=== PATIENT | female | born 1970 | race Caucasian/White ===

== ENCOUNTER 2017-12-20 15:29 | Observation (INO) ==
--- NOTE | 2017-12-20 15:54 | ED ---
HPI General Chief complaint: Chest Pain Stated complaint: Weakness/Chest Pain/Hypertension xLast Night History of Present Illness HPI narrative: 47-year-old female here for evaluation of chest pain and flu/ cold like symptoms. The patient reports that 2 weeks ago she had a couple episodes of right upper chest pain that she describes as sharp, lasting several seconds, nonradiating, improved when she rubbed her chest, no worsening factors , no associated diaphoresis or dyspnea. Patient reports that she had a couple more of these episodes last night, and again this morning. She also states that for the last 6 weeks or so she has been having nasal congestion, pressure in bilateral ears, and sore throat. She is unsure if she has had a fever stating that she is going through menopause and occasionally has hot flashes. She reports family history of heart disease in her mother who also had a stroke in the past. Patient reports that she quit smoking cigarettes about 6 weeks ago after smoking for about a year. She quit smoking for 4 years before that, however reports smoking throughout her entire life. Currently she is chest pain -free. No history of DVT or PE. No paresthesias or motor deficits. No dyspnea. Related Data Home Medications Medication Instructions Recorded Confirmed No Known Home Medications 12/20/17 12/20/17 Allergies Allergy/AdvReac Type Severity Reaction Status Date / Time No Known Allergies Allergy Verified 12/20/17 15:39 Review of Systems ROS: all other systems reviewed are negative PMFSH Medical History Medical History Patient denies medical problems (Acute) Surgical History Surgical History H/O tubal ligation (Acute) Social History Social History Substance History: No History of Abuse Smoking Status: Former smoker Tobacco Type: Cigarettes How Often Do You Have a Drink Containing Alcohol: Never Recent Travel in [facility] within the Last 8 Weeks: No Recent Out of Country Travel within the Last 8 Weeks: No Immunization History Tetanus Immunization: Unsure Hx Influenza Vaccine This Season: No Exam Narrative Exam Narrative: GENERAL: Well-developed, well-nourished, awake, alert, comfortable, no apparent distress. SKIN: Focused skin assessment warm/dry. HEAD: Atraumatic. Normocephalic. EYES: Pupils equal and round. No scleral icterus. No injection or drainage. ENT: Mucous membranes pink and moist. Pharynx with mild erythema without exudates. Otherwise normal. No drooling or stridor. Bilateral tympanic membranes and external auditory canals are normal. NECK: Trachea midline. No JVD. CARDIOVASCULAR: Regular rate and rhythm. Distal pulses brisk and equal bilaterally. RESPIRATORY: No accessory muscle use. Clear to auscultation. Breath sounds equal bilaterally. GASTROINTESTINAL: Abdomen soft, non-tender, nondistended. MUSCULOSKELETAL: No obvious deformities. No clubbing. No cyanosis. No edema. NEUROLOGICAL: Awake and alert. No obvious cranial nerve deficits. Motor grossly within normal limits. Normal speech. PSYCHIATRIC: Appropriate mood and affect; insight and judgment normal. Course Initial Documented Vital Signs Temperature 98.5 F 12/20/17 15:39 Pulse Rate 87 12/20/17 15:39 Respiratory Rate 18 12/20/17 15:39 Blood Pressure 137/83 12/20/17 15:39 Pulse Oximetry 98 12/20/17 15:39 Last Documented Vital Signs Temperature 98.5 F 12/20/17 15:39 Pulse Rate 84 12/20/17 16:58 Respiratory Rate 18 12/20/17 16:58 Blood Pressure 106/67 12/20/17 16:58 Pulse Oximetry 97 12/20/17 16:58 Medical Decision Making [facility] Narrative Medical decision making narrative: 3:58 PM: The patient had an episode of 8 beats of nonsustained ventricular tachycardia on the monitor. She reported feeling a fluttering sensation in her chest at that time. Labs, vitals, and imaging studies were reviewed and were reviewed with the patient. Labs are remarkable for potassium 3.4 which was replaced orally, otherwise unremarkable. Cardiac enzymes are negative. D-dimer is negative. Chest x-ray shows no acute cardia pulmonary disease. EKG shows normal sinus rhythm with normal intervals, no acute ischemic abnormalities. Patient was made aware of all findings. She is resting comfortably. Because of this episode of 8 beats of nonsustained ventricular tachycardia, chest pain, risk factors of cardiac disease which include history of smoking and family history of cardiac disease in her mother, she will be admitted to the chest pain center for further cardiac evaluation. She was given a full aspirin in the emergency department and started on Augmentin for sinusitis type symptoms. Case discussed with hospitalist Dr. Torrey Bravo who will admit the patient to his service. Medical Screen Exam Complete: Yes Emergency Medical Condition: Yes Lab Data Result diagrams: 12/20/17 15:50 12/20/17 15:50 Lab Results 12/20/17 12/20/17 12/20/17 Range/Units 15:50 15:50 15:50 CBC w Diff Auto diff final WBC 7.4 (4.0-11.0) th/mm3 RBC 4.92 (4.00-5.30) mil/mm3 Hgb 15.2 (11.6-15.3) gm/dL Hct 44.2 (35.0-46.0) % MCV 89.8 (80.0-100.0) fL MCH 30.8 (27.0-34.0) pg MCHC 34.3 (32.0-36.0) % RDW 12.3 (11.6-17.2) % Plt Count 231 (150-450) th/mm3 MPV 8.2 (7.0-11.0) fL Neut % (Auto) 77.2 H (16.0-70.0) % Lymph % (Auto) 18.3 (9.0-44.0) % [place] % (Auto) 3.0 (0.0-8.0) % Eos % (Auto) 1.1 (0.0-4.0) % Baso % (Auto) 0.4 (0.0-2.0) % Neut # (Auto) 5.7 (1.8-7.7) th/mm3 Lymph # (Auto) 1.4 (1.0-4.8) th/mm3 [place] # (Auto) 0.2 (0.0-0.9) th/mm3 Eos # (Auto) 0.1 (0.0-0.4) th/mm3 Baso # (Auto) 0.0 (0.0-0.2) th/mm3 WBC Differential . Differential Comment . D-Dimer Quant (PE/DVT) (0.00-0.50) mg/L FEU Sodium 141 (136-145) meq/L Potassium 3.4 L (3.5-5.1) meq/L Chloride 106 (98-107) meq/L Carbon Dioxide 23.0 (21.0-32.0) meq/L Anion Gap 12 (5-15) meq/L BUN 11 (7-18) mg/dL Creatinine 0.93 (0.50-1.00) mg/dL Estimated GFR 64 L (>89) mL/min Random Glucose 140 H (74-106) mg/dL Calcium 8.9 (8.5-10.1) mg/dL Total Bilirubin 0.4 (0.2-1.0) mg/dL AST 10 L (15-37) U/L ALT 15 (10-53) U/L Alkaline Phosphatase 72 (45-117) U/L Total Creatine Kinase 80 (26-192) U/L Troponin I Less than 0.02 L (0.02-0.05) ng/mL Total Protein 7.6 (6.4-8.2) g/dL Albumin 3.6 (3.4-5.0) g/dL Beta HCG, Quant 1 (0-5) mIU/mL 12/20/17 Range/Units 16:15 CBC w Diff WBC (4.0-11.0) th/mm3 RBC (4.00-5.30) mil/mm3 Hgb (11.6-15.3) gm/dL Hct (35.0-46.0) % MCV (80.0-100.0) fL MCH (27.0-34.0) pg MCHC (32.0-36.0) % RDW (11.6-17.2) % Plt Count (150-450) th/mm3 MPV (7.0-11.0) fL Neut % (Auto) (16.0-70.0) % Lymph % (Auto) (9.0-44.0) % [place] % (Auto) (0.0-8.0) % Eos % (Auto) (0.0-4.0) % Baso % (Auto) (0.0-2.0) % Neut # (Auto) (1.8-7.7) th/mm3 Lymph # (Auto) (1.0-4.8) th/mm3 [place] # (Auto) (0.0-0.9) th/mm3 Eos # (Auto) (0.0-0.4) th/mm3 Baso # (Auto) (0.0-0.2) th/mm3 WBC Differential Differential Comment D-Dimer Quant (PE/DVT) 0.21 (0.00-0.50) mg/L FEU Sodium (136-145) meq/L Potassium (3.5-5.1) meq/L Chloride (98-107) meq/L Carbon Dioxide (21.0-32.0) meq/L Anion Gap (5-15) meq/L BUN (7-18) mg/dL Creatinine (0.50-1.00) mg/dL Estimated GFR (>89) mL/min Random Glucose (74-106) mg/dL Calcium (8.5-10.1) mg/dL Total Bilirubin (0.2-1.0) mg/dL AST (15-37) U/L ALT (10-53) U/L Alkaline Phosphatase (45-117) U/L Total Creatine Kinase (26-192) U/L Troponin I (0.02-0.05) ng/mL Total Protein (6.4-8.2) g/dL Albumin (3.4-5.0) g/dL Beta HCG, Quant (0-5) mIU/mL Imaging Data Radiologist's impression: Chest X-Ray 12/20/17 15:46 CONCLUSION: No acute cardiopulmonary abnormality is identified. ECG Data Attestation: I personally reviewed and interpreted this ECG as follows: (Sinus, rate 69, normal axis, normal intervals, no acute ischemic abnormality.) Discharge Plan Discharge Disposition Patient Disposition: 30 Still Patient Discharge Condition Condition: Stable Discharge Details Diagnosis: Chest pain, Non-sustained ventricular tachycardia, Sinusitis Physicians Team ED Provider: Nicolas Castle Primary Care Provider: Primary Care Angi Pruett Rxs /Orders / Referrals /Forms Prescriptions: No Action No Known Home Medications RF: 0 Discharge Instructions Patient Printed Instructions: Chest Pain (ED) Status ED Status: With Nurse
[2017-12-20 15:59] LABS: Baso % (Auto) 0.4 % (0.0-2.0); Eos # (Auto) 0.1 th/mm3 (0.0-0.4); Eos % (Auto) 1.1 % (0.0-4.0); Hematocrit 44.2 % (35.0-46.0); Hemoglobin 15.2 gm/dL (11.6-15.3); Lymph # (Auto) 1.4 th/mm3 (1.0-4.8); Lymph % (Auto) 18.3 % (9.0-44.0); Mean Corpuscular HGB Conc 34.3 % (32.0-36.0); Mean Corpuscular Hemoglobin 30.8 pg (27.0-34.0); Mean Corpuscular Volume 89.8 fL (80.0-100.0); Mean Platelet Volume 8.2 fL (7.0-11.0); Mono # (Auto) 0.2 th/mm3 (0.0-0.9); Neut # (Auto) 5.7 th/mm3 (1.8-7.7); Neut % (Auto) 77.2 % (16.0-70.0); Platelet Count 231 th/mm3 (150-450); Red Blood Count 4.92 mil/mm3 (4.00-5.30); Red Cell Distribution Width 12.3 % (11.6-17.2); White Blood Count 7.4 th/mm3 (4.0-11.0)
--- NOTE | 2017-12-20 16:10 | XR ---
EXAM DATE: 12/20/2017 3:46 PM EDT AGE/SEX: 47 years / Female INDICATIONS: Right sided chest pain for 24 hours CLINICAL DATA: This is the patient's initial encounter. Patient reports that signs and symptoms have been present for 1 day and indicates a pain score of 3/10. MEDICAL/SURGICAL HISTORY: None. None. COMPARISON: No prior exams available for comparison. FINDINGS: Portable AP view of the chest demonstrates a normal-sized cardiac silhouette. No effusion, consolidat ion, or pneumothorax is identified. The bones and soft tissues demonstrate no acute finding. EKG line s overlie the patient. CONCLUSION: No acute cardiopulmonary abnormality is identified. Electronically signed by: Andrae oHdges MD 12/20/2017 4:09 PM EDT
[2017-12-20 16:11] LABS: Chloride 106 meq/L (98-107); Potassium 3.4 meq/L (3.5-5.1); Sodium 141 meq/L (136-145)
[2017-12-20 16:13] LABS: Calcium 8.9 mg/dL (8.5-10.1)
[2017-12-20 16:14] LABS: Albumin 3.6 g/dL (3.4-5.0); Anion Gap 12 meq/L (5-15); Blood Urea Nitrogen 11 mg/dL (7-18); Glucose,Random 140 mg/dL (74-106)
[2017-12-20 16:17] LABS: Alanine Aminotransferase 15 U/L (10-53); Aspartate Aminotransferase 10 U/L (15-37); Glomerular Filtration Rate 64 mL/min (>89)
[2017-12-20 16:19] LABS: Total Protein 7.6 g/dL (6.4-8.2)
[2017-12-20 16:20] LABS: Alkaline Phosphatase 72 U/L (45-117); Creatine Kinase 80 U/L (26-192)
[2017-12-20] MEDS ORDERED: Amoxicillin/Clavulanate 875/125 MG Tablet PO ONE (17:07)
[2017-12-20] MEDS ORDERED: Morphine Inj 4 MG/ML Vial IV.PUSH PRN (18:19)
[2017-12-20] MEDS ORDERED: Enoxaparin Inj 40 MG/0.4 ML Syringe SQ SCH (20:00)
[2017-12-20] MEDS: Sod Chloride 0.9% Inj 1,000 ML IV.CONT SCH (21:29)
--- NOTE | 2017-12-20 21:31 | ECG ---
Date Performed: 12/20/2017 Time Performed: 15:38:49 PTAGE: 47 years EKG: Sinus rhythm NORMAL ECG NO PREVIOUS TRACING DOCTOR: Aleks West Interpretating Date/Time 12/20/2017 21:29:45
[2017-12-20 22:38] LABS: Chloride 107 meq/L (98-107); Potassium 3.7 meq/L (3.5-5.1); Sodium 140 meq/L (136-145)
[2017-12-20 22:41] LABS: Calcium 8.5 mg/dL (8.5-10.1)
[2017-12-20 22:42] LABS: Albumin 3.2 g/dL (3.4-5.0); Anion Gap 8 meq/L (5-15); Blood Urea Nitrogen 15 mg/dL (7-18); Carbon Dioxide 24.7 meq/L (21.0-32.0); Glucose,Random 113 mg/dL (74-106)
[2017-12-20 22:45] LABS: Alanine Aminotransferase 17 U/L (10-53); Aspartate Aminotransferase 12 U/L (15-37); Glomerular Filtration Rate Greater Than 89 mL/min (>89)
[2017-12-20 22:46] LABS: Total Protein 6.8 g/dL (6.4-8.2)
[2017-12-20 22:48] LABS: Alkaline Phosphatase 66 U/L (45-117)
[2017-12-20 22:58] LABS: Creatine Kinase 66 U/L (26-192)
--- NOTE | 2017-12-21 06:34 | ECG ---
Date Performed: 12/20/2017 Time Performed: 22:09:58 PTAGE: 47 years EKG: Sinus rhythm NORMAL ECG No significant change from prior electrocardiogram. PREVIOUS TRACING : 12/20/2017 15.38 DOCTOR: Aleks West Interpretating Date/Time 12/21/2017 06:33:07
[2017-12-21 07:10] LABS: Creatine Kinase 69 U/L (26-192)
[2017-12-21 07:56] LABS: Baso % (Auto) 0.6 % (0.0-2.0); Eos # (Auto) 0.2 th/mm3 (0.0-0.4); Eos % (Auto) 2.8 % (0.0-4.0); Hematocrit 43.1 % (35.0-46.0); Hemoglobin 14.6 gm/dL (11.6-15.3); Lymph # (Auto) 1.5 th/mm3 (1.0-4.8); Lymph % (Auto) 23.5 % (9.0-44.0); Mean Corpuscular HGB Conc 33.9 % (32.0-36.0); Mean Corpuscular Hemoglobin 30.2 pg (27.0-34.0); Mean Platelet Volume 8.1 fL (7.0-11.0); Mono # (Auto) 0.3 th/mm3 (0.0-0.9); Mono % (Auto) 5.5 % (0.0-8.0); Neut # (Auto) 4.2 th/mm3 (1.8-7.7); Neut % (Auto) 67.6 % (16.0-70.0); Platelet Count 218 th/mm3 (150-450); Red Blood Count 4.84 mil/mm3 (4.00-5.30); Red Cell Distribution Width 12.3 % (11.6-17.2); White Blood Count 6.2 th/mm3 (4.0-11.0)
[2017-12-21] MEDS ORDERED: Aspirin 325 MG Tablet PO SCH (09:00)
--- NOTE | 2017-12-21 09:33 | ECG ---
Date Performed: 12/21/2017 Time Performed: 00:50:56 PTAGE: 47 years EKG: Sinus rhythm WITH SINUS ARRHYTHMIA NORMAL ECG No significant change from prior electrocardiogram. PREVIOUS TRACING : 12/20/2017 22.09 DOCTOR: Aleks West Interpretating Date/Time 12/21/2017 09:31:07
--- NOTE | 2017-12-21 09:48 | P.HP ---
History of Present Illness Primary Care Physician: No Primary Care Physician Chief Complaint: Chest pain History of Present Illness: 47-year-old female with no chronic medical illnesses who presented to the hospital for evaluation of chest discomfort. Patient states that she started developing chest discomfort located in her right anterior chest associated with some lightheadedness and dizziness approximately 1 week ago. She had one episode at that time felt like she is going to pass out. However she was doing well until last night when she started developing the discomfort again. This time she is having some pain in her right anterior chest that did not radiate to her neck, back, shoulder, arm. She did have some lightheadedness dizziness. He denied any nausea, vomiting, diaphoresis, shortness of breath, dyspnea. Patient came to the emergency department for evaluation. ER documentation indicates that while the patient was in the ER while on telemetry there was an episode of a nonsustained ventricular tachycardia of 8 beats. Because of that reason it was recommended by the ER physician that the patient be observed in the hospital for further evaluation and management. Patient denies any previous cardiac workup. Risk factors would include age, history of tobacco use, family history of heart disease. - Diagnosis (1) Chest pain (2) Non-sustained ventricular tachycardia Review of Systems Cardiovascular: Reports chest pain, Reports rapid, pounding, or irregular heartbeat PMFSH - History History Provided By: Patient - Medical History Medical History: Medical History (Last Reviewed 12/21/17 @ 09:37 by SOFÍA Nelson) Patient denies medical problems - Surgical History Surgical History: Surgical History (Last Reviewed 12/21/17 @ 09:37 by SOFÍA Nelson) H/O tubal ligation - Family History Family History: Family History (Last Updated 12/21/17 @ 09:39 by SOFÍA Nelson) Father History of colon cancer History of COPD History of myocardial infarction Mother History of stroke History of breast cancer History of diabetes mellitus - Tobacco History Second Hand Smoke Exposure: No Tobacco Use In Past 30 Days: Yes Smoking Status: Former smoker Tobacco Type: Cigarettes - Alcohol History How Often Do You Have a Drink Containing Alcohol: Never - Substance Use History Substance History: No History of Abuse - Travel History Recent Travel in the [place] Within the Last 8 Weeks: No Recent Travel Out of the Country Within the Last 8 Weeks: No - Immunization History Tetanus Immunization: Unsure Hx Influenza Vaccine This Season: No Medications and Allergies Active Medications: Active Medications Aspirin (Aspirin) 325 mg PO DAILY [facility] Last Admin: 12/21/17 08:40 Dose: 325 mg Enoxaparin Sodium (Lovenox Inj) 40 mg SQ Q24H [facility] Last Admin: 12/20/17 21:29 Dose: 40 mg Morphine Sulfate (Morphine Inj) 2 mg IV.PUSH Q4H PRN PRN Reason: Chest Pain, or pain 3 to 10 Nitroglycerin (Nitrostat Sl) 0.4 mg SL Q5M PRN PRN Reason: CHEST PAIN Ondansetron HCl (Zofran Inj) 4 mg IV.PUSH Q6H PRN PRN Reason: NAUSEA Sodium Chloride (Ns Flush) 2 ml IV.FLUSH BID [facility] Last Admin: 12/20/17 21:29 Dose: 2 ml Sodium Chloride (Ns Flush) 2 ml IV.FLUSH PRN PRN PRN Reason: FLUSH AFTER USING IV ACCESS Allergies Allergy/AdvReac Type Severity Reaction Status Date / Time No Known Allergies Allergy Verified 12/20/17 15:39 Home Medications Medication Instructions Recorded Confirmed Type No Known Home Medications 12/20/17 12/20/17 History Exam Vital signs: Vital Signs 12/20/17 15:39 12/20/17 16:01 12/20/17 16:58 Temperature 98.5 F Pulse Rate 87 86 84 Respiratory Rate 18 18 Blood Pressure 137/83 106/67 Pulse Oximetry 98 98 97 12/20/17 17:41 12/20/17 21:06 12/20/17 21:15 Temperature 96.7 F L Pulse Rate 74 72 Respiratory Rate 16 16 Blood Pressure 98/61 L 137/87 Pulse Oximetry 96 96 12/21/17 00:00 12/21/17 04:00 12/21/17 08:00 Temperature 97.1 F L 97.0 F L Pulse Rate 55 L 56 L Respiratory Rate 16 16 Blood Pressure 130/72 130/76 Pulse Oximetry 98 98 98 Intake & Output 12/20/17 12/21/17 12/21/17 18:59 06:59 18:59 Weight 85 kg 86.7 kg Other: # Voids 3 Weight On Admission 86.1 kg Narrative: GENERAL: Well-developed, well-nourished, in no acute distress. alert and orientated HEENT: Head is normocephalic without any lesions or masses noted. Facial features are symmetric. Eyes: Pupils equal round reactive to light. Extraocular muscles are intact. Conjunctivae were clear. Oropharyngeal: Pharynx without any erythema edema. Tongue is midline without deviation. Buccal mucosa is moist without any masses or lesions NECK: Supple without any masses. Trachea midline no deviation. No JVD, no bruits are appreciated CARDIAC: Regular rhythm, regular rate. S1/S2 are heard. No murmurs gallops or rubs. LUNGS: Clear to auscultation bilaterally. No wheeze, rhonchi or rales. No use of accessory muscles on inspiration or expiration. ABDOMEN: Soft, nontender. Nondistended. Bowel sounds heard in all 4 quadrants. No organomegaly or masses. Negative rebound, negative guarding EXTREMITIES: No edema, pulses are equal bilaterally. No cyanosis or clubbing NEUROLOGY: Mood and affect appear appropriate. Cranial nerves II through XII grossly intact. Muscle strength 5/5 in upper and lower extremities bilaterally. Deep tendon reflexes are 2+ in upper and lower extremities bilaterally. Results - Labs CBC & Chem 7: 12/21/17 07:25 12/20/17 22:10 Labs: Laboratory Results - last 24 hr 12/20/17 12/20/17 12/20/17 15:50 15:50 15:50 CBC w Diff Auto diff final WBC 7.4 RBC 4.92 Hgb 15.2 Hct 44.2 MCV 89.8 MCH 30.8 MCHC 34.3 RDW 12.3 Plt Count 231 MPV 8.2 Neut % (Auto) 77.2 H Lymph % (Auto) 18.3 [place] % (Auto) 3.0 Eos % (Auto) 1.1 Baso % (Auto) 0.4 Neut # (Auto) 5.7 Lymph # (Auto) 1.4 [place] # (Auto) 0.2 Eos # (Auto) 0.1 Baso # (Auto) 0.0 WBC Differential . Differential Comment . D-Dimer Quant (PE/DVT) Sodium 141 Potassium 3.4 L Chloride 106 Carbon Dioxide 23.0 Anion Gap 12 BUN 11 Creatinine 0.93 Estimated GFR 64 L Random Glucose 140 H Calcium 8.9 Total Bilirubin 0.4 AST 10 L ALT 15 Alkaline Phosphatase 72 Total Creatine Kinase 80 Troponin I Less than 0.02 L Total Protein 7.6 Albumin 3.6 Beta HCG, Quant 1 12/20/17 12/20/17 12/21/17 16:15 22:10 01:05 CBC w Diff WBC RBC Hgb Hct MCV MCH MCHC RDW Plt Count MPV Neut % (Auto) Lymph % (Auto) [place] % (Auto) Eos % (Auto) Baso % (Auto) Neut # (Auto) Lymph # (Auto) [place] # (Auto) Eos # (Auto) Baso # (Auto) WBC Differential Differential Comment D-Dimer Quant (PE/DVT) 0.21 Sodium 140 Potassium 3.7 Chloride 107 Carbon Dioxide 24.7 Anion Gap 8 BUN 15 Creatinine 0.63 Estimated GFR Greater than 89 Random Glucose 113 H Calcium 8.5 Total Bilirubin 0.2 AST 12 L ALT 17 Alkaline Phosphatase 66 Total Creatine Kinase 66 69 Troponin I Less than 0.02 L Less than 0.02 L Total Protein 6.8 D Albumin 3.2 L Beta HCG, Quant 12/21/17 07:25 CBC w Diff Auto diff final WBC 6.2 RBC 4.84 Hgb 14.6 Hct 43.1 MCV 89.0 MCH 30.2 MCHC 33.9 RDW 12.3 Plt Count 218 MPV 8.1 Neut % (Auto) 67.6 Lymph % (Auto) 23.5 [place] % (Auto) 5.5 Eos % (Auto) 2.8 Baso % (Auto) 0.6 Neut # (Auto) 4.2 Lymph # (Auto) 1.5 [place] # (Auto) 0.3 Eos # (Auto) 0.2 Baso # (Auto) 0.0 WBC Differential . Differential Comment . D-Dimer Quant (PE/DVT) Sodium Potassium Chloride Carbon Dioxide Anion Gap BUN Creatinine Estimated GFR Random Glucose Calcium Total Bilirubin AST ALT Alkaline Phosphatase Total Creatine Kinase Troponin I Total Protein Albumin Beta HCG, Quant - Imaging Impressions Chest X-Ray 12/20/17 15:46 CONCLUSION: No acute cardiopulmonary abnormality is identified. Caprini VTE Risk Assessment Caprini VTE Risk Assessment: No/Low Risk (score <= 1) Caprini Risk Assessment Model: Point Value = 1 Point Value = 2 Point Value = 3 Point Value = 5 Age 41-60 Minor surgery BMI > 25 kg/m2 Swollen legs Varicose veins or History of unexplained or recurrent spontaneous Oral contraceptives or hormone replacement Sepsis (< 1 month) Serious lung disease, including pneumonia (< 1 month) Abnormal pulmonary function Acute myocardial infarction Congestive heart failure (< 1 month) History of inflammatory bowel disease Medical patient at bed rest Age 61-74 Arthroscopic surgery Major open surgery (> 45 min) Laparoscopic surgery (> 45 min) Malignancy Confined to bed (> 72 hours) Immobilizing plaster cast Central venous access Age >= 75 History of VTE Family history of VTE Factor V Leiden Prothrombin [id number] Lupus anticoagulant Anticardiolipin antibodies Elevated serum homocysteine Heparin-induced thrombocytopenia Other congenital or acquired thrombophilia Stroke (< 1 month) Elective arthroplasty Hip, pelvis, or leg fracture Acute spinal cord injury (< 1 month) Prophylaxis Regimen: Total Risk Factor Score Risk Level Prophylaxis Regimen 0-1 Low Early ambulation 2 Moderate Order ONE of the following: *Sequential Compression Device (SCD) *Heparin 5000 units SQ BID 3-4 Higher Order ONE of the following medications: *Heparin 5000 units SQ TID *Enoxaparin/Lovenox 40 mg SQ daily (WT < 150 kg, CrCl > 30 mL/min) *Enoxaparin/Lovenox 30 mg SQ daily (WT < 150 kg, CrCl > 10-29 mL/min) *Enoxaparin/Lovenox 30 mg SQ BID (WT < 150 kg, CrCl > 30 mL/min) AND/OR *Sequential Compression Device (SCD) 5 or more Highest Order ONE of the following medications: *Heparin 5000 units SQ TID (Preferred with Epidurals) *Enoxaparin/Lovenox 40 mg SQ daily (WT < 150 kg, CrCl > 30 mL/min) *Enoxaparin/Lovenox 30 mg SQ daily (WT < 150 kg, CrCl > 10-29 mL/min) *Enoxaparin/Lovenox 30 mg SQ BID (WT < 150 kg, CrCl > 30 mL/min) AND *Sequential Compression Device (SCD) Assessment and Plan - Assessment (1) Chest pain Code(s): R07.9 - Chest pain, unspecified Status: Acute (2) Non-sustained ventricular tachycardia Code(s): I47.2 - Ventricular tachycardia Status: Acute - Plan Chest discomfort with an episode of nonsustained ventricular tachycardia cardia -Patient with increased risk factors include age, history of tobacco use, family history of heart disease -Telemetry was monitored and reviewed, no recurrence of any ventricular tachycardia -Patient has been ruled out for any acute coronary event with serial cardiac enzymes remain negative -Serial EKGs which reviewed by myself shows sinus rhythm without any changes -Exercise stress test was performed and indicated normal stress test, no signs of ischemia -Continue aspirin, nitroglycerin as needed -Continue monitor telemetry DVT prevention -Subcutaneous Lovenox Discharge Planning: Discharge home in stable condition Activity: Ad lesly. Diet: Regular diet Medication per medication reconciliation Follow-up with primary medical doctor in 1 week (1) Chest pain Qualifiers: Chest pain type: unspecified Qualified Code(s): R07.9 - Chest pain, unspecified
[2017-12-21 10:04] VITALS: BP 123/83; PULSE 65; RESP 18; TEMP 96.3; O2SAT 97
[2017-12-21] MEDS: Sod Chloride 0.9% Inj 1,000 ML IV.CONT SCH (11:32)
--- NOTE | 2017-12-21 13:02 | TR ---
Date Performed: 12/21/2017 Time Performed: 11:47:46 DOCTOR: Mark Slater DRUG LIST: CLINICAL HISTORY: CHEST PAIN REASON FOR TEST: REASON FOR ENDING: Completed Protocol OBSERVATION: Chest Pain: None CONCLUSION: Patient tolerated MOMO protocol with Total Exercise Time=7:00 Maximum IG=774 % Max HR Achieved=90.0% Maximum YR=182/82, Testing stopped secondary to goals acheived, Patient reached tar get HR. During peak exercise patient was asymptomatic, upsloping st segments, no significant ST depre ssions, HR and BP appropriate response to exercise, Recovery period, HR and BP returned to baseline COMMENTS: Conclusion: Normal treadmill exercise. No evidence of ischemia.
== END 2017-12-21 13:30 | disposition home or self-care (01) ==
LOC: PHEDA 15:29 → PHED 15:29 → PH3 18:01
PROVIDERS: ADMIT Hospitalist; ATTEND Hospitalist